=== PATIENT | female | born 1965 | race Caucasian/White ===

== ENCOUNTER → 2020-04-23 | Outpatient (CLI) | payer OTHER ==
[~2020-04-23] MED LIST: CYMBALTA 30 MG30 MG PO; NABUMETONE500 MG PO; NORCO 5-325 TA1 EACH PO; PREDNISONE20 MG PO; WAL-PROXEN220 MG PO
== END ==
LOC: EXRD 11:30
DX: M25.50 Pain in unspecified joint (principal); M85.88 Other specified disorders of bone density and structure, other site; M81.0 Age-related osteoporosis without current pathological fracture
CPT/HCPCS: 77080